=== PATIENT | male | born 1960 | race Caucasian/White ===

== ENCOUNTER → 2023-06-15 10:05 | Outpatient (BNVA) | payer MEDICARE, BC, SELFPAY | PROVIDERS: PCP Family Medicine Adult Medicine; Visit Provider Family Medicine Adult Medicine | DX: I10 Essential (primary) hypertension (principal); I49.9 Cardiac arrhythmia, unspecified | CPT/HCPCS: 93005 ==

== ENCOUNTER 2023-09-05 07:33 | Outpatient (CLI) | payer BC, SELFPAY ==
--- NOTE | 2023-09-05 08:12 | ECG_ITS ---
[facility] Test Date: 2023-09-05 Pat Name: Marty Garcia Department: Room: Gender: Male Chief Nuclear Medicine Technologist: : 1960 Requested By: Chandan Ortiz Order Number: [id number] Noam MD: Thania Nunez M.D. Interpretive Statements NAME OF STUDY: EXERCISE SESTAMIBI STRESS TEST INDICATION: Angina, PROCEDURE: The baseline electrocardiogram showed atrial flutter/fibrillation with a ventricular response rate of 101 bpm. At the baseline, the patient's blood pressure was mm Hg with a heart rate of. The patient exercised for 4 minutes and 15 seconds on a standard Yang protocol. Patient attained a maximum heart rate of 155 beats per minute(99% of the maximum predicted heart rate) with a blood pressure at the peak exercise of 158/82 mm Hg. The EKG at the peak exercise revealed no significant changes. Patient did not have any chest pain or any significant arrhythmis with the exercise Sestamibi was injected 1 minute prior to the peak exercise During the recovery phase, there were no new changes. Blood pressure at the end of the recovery phase was 161/90 mm Hg with a heart rate of 101 per minute. CONCLUSION: 1. No significant EKG changes with the [treadmill exercise 2. No exercise-induced chest pain or cardiac arrhythmia 3. Impaired exercise tolerance, attained a maximum of 7.0 METs 4. Sestamibi/Sestamibi perfusion results pending; see separate report. Electronically Signed On 09-10-2023 20:12:22 LOCKSTITCH SHOULDER JOINER by Thania Nunez M.D. [id number]
--- NOTE | 2023-09-05 08:12 | NMCV_ITS ---
NM lisa perf SPECT r/s* [id number] Marty Garcia Age: 63 Gender: M : 1960 Exam Date: 09/05/2023 09:14 Ordering Phys: Chandan Gonzalez MD Technologist: SAMMIE Madrid Exam Location: [facility] Indications: ANGINA PECTORIS STRESS TEST [facility] IMAGE PROTOCOL Rest/Stress 1 Exercise Day Radiopharmaceutical Dose (mCi) Administration Site Administered by Rest: Tc-99m 10.7 IV SAMMIE Dozier Sestamibi Stress:Tc-99m 32.6 IV SAMMIE Dozier Sestamibi Rest: 09/05/2023 60 Discovery 630 Stress: 09/05/2023 30 Discovery 630 Radiopharmaceutical was injected at 86 % maximum heart rate. Images obtained in supine and prone position. SPECT RESULTS Technical Quality: Excellent Raw Data Analysis: Normal Image Corrections: No attenuation or motion correction applied Summed Stress Score: 8 Summed Rest Score: 12 Summed Difference Score: 0 PERFUSION FINDINGS Moderate area of moderate to severely decreased tracer uptake involving the basal and mid inferolateral, inferior and apical some small areas of reversibility were noted in the inferolateral region with respect to the supine imaging. However compared with the prone imaging, no significant reversibility was noted FUNCTIONAL RESULTS (calculated via Gated SPECT) Stress Image LV EF (%): 39 Stress EDV (mL):158 TID: 1.02 Stress ESV (mL):96 FUNCTIONAL FINDINGS: Segmental wall motion analysis revealed mild diffuse hypokinesia of the apex and the septum IMPRESSIONS 1. Myocardial perfusion imaging revealing moderate area of moderate to severely decreased tracer uptake involving the inferior, inferolateral and apical regions, with a subtle areas of reversible defects, in the supine imaging, suggesting myocardial scarring in the distribution of the right coronary artery/circumflex artery with a subtle areas of rafael-infarction ischemia. However because of the inconsistency with the prone imaging, the reliability of this finding is questionable 2. Diminished ejection fraction of 39%. 3. LV wall motion analysis revealed diffuse hypokinesia of the septum and the LV apex 4. Mildly dilated LV cavity with end-systolic volume of 96 mL No similar previous studies are available for comparison Dr Thania Nunez MD [facility] (Electronically Signed) Final Date: 05 September 2023 15:07 S
[2023-09-05 08:14] VITALS: BMI 39.7
[2023-09-05 10:19] VITALS: BP 162/93; PULSE 86
== END 2023-09-05 07:34 | disposition home or self-care (01) ==
PROVIDERS: PCP Family Medicine; Visit Provider Family Medicine
DX: I20.9 Angina pectoris, unspecified (principal)
CPT/HCPCS: 36415; 78452; 93017; 96374; A9500

== ENCOUNTER → 2023-11-10 12:36 | Outpatient (BNVA) | payer MEDICARE, SELFPAY | PROVIDERS: PCP Family Medicine; Referring Provider Family Medicine; Visit Provider Internal Medicine | DX: R07.9 Chest pain, unspecified (principal); I48.91 Unspecified atrial fibrillation; I11.0 Hypertensive heart disease with heart failure; I50.22 Chronic systolic (congestive) heart failure; I25.10 Atherosclerotic heart disease of native coronary artery without angina pectoris; Z98.61 Coronary angioplasty status; Z87.891 Personal history of nicotine dependence; I48.92 Unspecified atrial flutter; I45.19 Other right bundle-branch block | CPT/HCPCS: 93005; 99204 ==

== ENCOUNTER 2023-11-11 09:50 | Outpatient (CLI) | payer MEDICARE, SELFPAY ==
--- NOTE | 2023-11-11 09:57 | CTR_ITS ---
PROCEDURE INFORMATION: Exam: CT Abdomen And Pelvis Without And With Contrast Exam date and time: 11/11/2023 11:42 AM Age: 63 years old Clinical indication: Patient HX: UTI, yumiko hematuria wo trauma, PT states UTI x1 mon ago TECHNIQUE: Imaging protocol: Computed tomography of the abdomen and pelvis without and with contrast. Radiation optimization: All CT scans at this facility use at least one of these dose optimization techniques: automated exposure control; mA and/or kV adjustment per patient size (includes targeted exams where dose is matched to clinical indication); or iterative reconstruction. Contrast material: OMNI 350; Contrast volume: 100 ml; Contrast route: INTRAVENOUS (IV); COMPARISON: US scrotum [id number] 11/03/2023 9:09 AM RADIATION DOSE METRICS: Total DLP (mGy-cm): 2525.78 FINDINGS: Liver: No focal hepatic lesion. Gallbladder and bile ducts: Grossly unremarkable. No evidence of inflammatory changes. No biliary dilatation. Pancreas: Grossly unremarkable. Spleen: Grossly unremarkable. Adrenal glands: Grossly unremarkable. Kidneys and ureters: There is a simple appearing right-sided renal cyst for which dedicated imaging follow-up is not required. Otherwise no evidence of renal parenchymal abnormality. No hydronephrosis or ureteral stone. Stomach and bowel: No bowel obstruction or perienteric inflammatory changes. Appendix: Grossly unremarkable. Intraperitoneal space: No evidence of free air or fluid collection. Vasculature: Mild aortobiiliac atherosclerosis without aneurysmal dilatation or dissection. The celiac trunk, SMA and ESTELITA are grossly patent. No evidence of IVC thrombus. The portal vein, SMV and splenic veins are grossly patent. Lymph nodes: Few prominent iliac chain nodes bilaterally. Multiple nonenlarged retroperitoneal nodes. Otherwise no evidence of adenopathy. Bladder/Prostate: Enlarged prostate measuring 7.5 cm craniocaudal by 6.4 cm transverse with indenting/invading of the bladder base. There is diffuse bladder wall thickening/haziness compatible with sequela of chronic obstruction and/or cystitis. Consider correlation with serum laboratory findings and outpatient urologic evaluation. Bones/joints: No evidence of acute fracture or aggressive osseous lesion. Chronic grade 1 anterolisthesis of L5 on S1 secondary to chronic bilateral L5 pars defects which along with a disc bulge results in severe bilateral foraminal stenosis with suspected impingement of the exiting L5 nerve roots. Soft tissues: No evidence of fluid collection or hematoma in the superficial soft tissues. CT/CT abdomen pelvis wo/w [id number] IMPRESSION: 1. Enlarged prostate indenting/invading the bladder base with diffuse bladder wall thickening/haziness compatible with sequela of chronic obstruction and/or cystitis. Consider urologic evaluation. 2. Iliac chain adenopathy, possibly reactive though raising the question of faye spread of neoplasm.
[2023-11-11 11:43] LABS: Blood Urea Nitrogen 16 mg/dL (8-23); Glomerular Filtration Rate 97.3 mL/min (90-130)
== END 2023-11-11 09:51 | disposition home or self-care (01) ==
LOC: RAD 09:50
PROVIDERS: PCP Family Medicine; Visit Provider Physician Assistant
DX: R31.0 Gross hematuria (principal); N40.0 Benign prostatic hyperplasia without lower urinary tract symptoms
CPT/HCPCS: 74178; 82565; 84520; Q9967

== ENCOUNTER 2023-11-25 07:21 | Outpatient (CLI) | payer MEDICARE, SELFPAY ==
--- NOTE | 2023-11-25 07:45 | USCV_ITS ---
Marty Garcia Age: 63 Gender: M : 1960 Exam Date: 11/25/2023 07:42 Ordering Phys: Hernan Jones M.D ([email or web address]) Technologist: Adalberto Alcantara Exam Location: [facility] Indication: chest pain BP: 150 / 82 HR: 77 Rhythm: Sinus Technical Quality: Adequate MEASUREMENTS (Male / Female) Normal Values 2D ECHO LV Diastolic Diameter PLAX 5.6 cm 4.2 - 5.9 / 3.9 - 5.3 cm IVS Diastolic Thickness 1.4 cm 0.6 - 1.0 / 0.6 - 0.9 cm IVS Systolic Thickness 1.6 cm LVPW Diastolic Thickness 1.5 cm 0.6 - 1.0 / 0.6 - 0.9 cm LVPW Systolic Thickness 2.1 cm LVOT Diameter 2.2 cm LV Ejection Fraction 2D Teich 52.5 % LV Ejection Fraction MOD 2C 51.8 % LV Ejection Fraction 2C AL 51.0 % LA Diameter 4.6 cm RA Systolic Volume 4C AL 60.2 ml RA Systolic Volume 4C MOD 62.8 ml LA Sys Volume AL 62.6 cm cubed LA Sys Volume Index AL 24.0 cm cubed/m squared Aorta at Sinotubular Diameter 2.3 cm IVC Diameter 2.6 cm M-MODE LA Ao Ratio MM 1.4 AV Cusp Separation MM 2.4 cm DOPPLER AV Peak Velocity 220.3 cm/s LVOT Peak Velocity 102.0 cm/s AV Area Cont Eq vti 2.0 cm squared AV Area Cont Eq pk 1.8 cm squared MV Peak Velocity 175.0 cm/s MV Area PHT 6.5 cm squared Mitral E to A Ratio 2.3 TV Peak Velocity 355.3 cm/s TR Peak Velocity 406.0 cm/s TR Peak Gradient 65.9 mmHg TR Mean Velocity 268.0 cm/s TR Mean Gradient 34.7 mmHg TR Velocity Time Integral 113.8 cm PV Peak Velocity 91.0 cm/s RV Ejection Time 0.3 s FINDINGS Left Ventricle Left ventricle is normal in size. LV systolic function is normal with EF of 50-55%. No regional wall motion abnormalities. Right Ventricle Normal in size and function Right Atrium Normal in size Left Atrium Normal in size Mitral Valve Mild mitral annular calcification. Mild mitral regurgitation. Aortic Valve Aortic valve is thickened. Mild aortic stenosis with aortic valve area of 1.88cm2 and mean gradient of 13mmHg. Tricuspid Valve Mild tricuspid regurgitation. Insufficient TR jet calculate RVSP Pulmonic Valve Not well visualized Pericardium Normal Aorta Normal in size IVC Appears to be dilated. CONCLUSIONS LV systolic function is normal with EF of 50-55% Mild mitral regurgitation Mild aortic stenosis. Mild tricuspid regurgitation. No comparison studies are available. Hernan Jones MD (Electronically Signed) Final Date: 11 December 2023 20:32 S
== END 2023-11-25 07:22 | disposition home or self-care (01) ==
LOC: RAD 07:21
PROVIDERS: PCP Family Medicine; Visit Provider Internal Medicine
DX: R07.9 Chest pain, unspecified (principal); R06.02 Shortness of breath
CPT/HCPCS: 93306

== ENCOUNTER → 2024-03-01 12:10 | Outpatient (BNVA) | payer MEDICARE, SELFPAY | PROVIDERS: PCP Family Medicine; Visit Provider Internal Medicine | DX: I48.91 Unspecified atrial fibrillation (principal); I50.22 Chronic systolic (congestive) heart failure; I10 Essential (primary) hypertension; I25.10 Atherosclerotic heart disease of native coronary artery without angina pectoris; Z98.61 Coronary angioplasty status; I11.0 Hypertensive heart disease with heart failure | CPT/HCPCS: 99214 ==

== ENCOUNTER → 2024-03-27 12:08 | Outpatient (BNVA) | payer MEDICARE, SELFPAY | PROVIDERS: PCP Family Medicine; Visit Provider Dermatology | DX: D48.5 Neoplasm of uncertain behavior of skin (principal); L72.0 Epidermal cyst; B36.0 Pityriasis versicolor; D22.39 Melanocytic nevi of other parts of face; M79.3 Panniculitis, unspecified | CPT/HCPCS: 99204 ==

== ENCOUNTER → 2024-09-06 11:15 | Outpatient (BNVA) | payer MEDICARE, SELFPAY | PROVIDERS: PCP Family Medicine; Visit Provider Nurse Practitioner Family | DX: Z08 Encounter for follow-up examination after completed treatment for malignant neoplasm (principal); D48.5 Neoplasm of uncertain behavior of skin; B36.0 Pityriasis versicolor; L72.0 Epidermal cyst; B02.29 Other postherpetic nervous system involvement; D22.39 Melanocytic nevi of other parts of face; D22.5 Melanocytic nevi of trunk; M79.3 Panniculitis, unspecified | CPT/HCPCS: 99213 ==

== ENCOUNTER → 2025-03-29 12:51 | Outpatient (BNVA) | payer MEDICARE, SELFPAY | PROVIDERS: PCP Family Medicine; Visit Provider Nurse Practitioner Family | DX: Z08 Encounter for follow-up examination after completed treatment for malignant neoplasm (principal); D48.5 Neoplasm of uncertain behavior of skin; L72.0 Epidermal cyst; B02.29 Other postherpetic nervous system involvement; L70.8 Other acne; D22.39 Melanocytic nevi of other parts of face; D22.5 Melanocytic nevi of trunk | CPT/HCPCS: 69100; 99213 ==

== ENCOUNTER → 2025-06-10 13:16 | Outpatient (BNVA) | payer MEDICARE, SELFPAY | PROVIDERS: PCP Family Medicine; Visit Provider Internal Medicine | DX: J44.9 Chronic obstructive pulmonary disease, unspecified (principal); I11.0 Hypertensive heart disease with heart failure; I50.9 Heart failure, unspecified; Z99.81 Dependence on supplemental oxygen; Z87.891 Personal history of nicotine dependence | CPT/HCPCS: 99204; Q3014 ==